=== PATIENT | male | born 1985 | race Caucasian/White ===

== ENCOUNTER 2022-09-28 13:03 | Emergency (ER) | payer OTHER ==
[~2022-09-28] VITALS: Ht 170.2 cm; Wt 68.0 kg
== END 2022-09-28 17:49 | disposition home or self-care (01) ==
LOC: ER 13:03
DX: S19.80XA Other specified injuries of unspecified part of neck, initial encounter (principal); S29.8XXA Other specified injuries of thorax, initial encounter; S69.81XA Other specified injuries of right wrist, hand and finger(s), initial encounter; V43.62XA Car passenger injured in collision with other type car in traffic accident, initial encounter; Y93.89 Activity, other specified; Y92.413 State road as the place of occurrence of the external cause; Y99.8 Other external cause status